=== PATIENT | female | born 1940 | race Caucasian/White ===

== ENCOUNTER → 2016-10-06 | Outpatient (CLI) | payer OTHER ==
[~2016-10-06] MED LIST: CALCIUM; DILT-115 PO; METO50TA7 PO; NAPR1TAB9 PO; PRLSR20 PO; RSTOPS OP; SIMV20TA2 PO
[2016-10-06 13:09] LABS: BLOOD UREA NITROGEN 16 mg/dl (7-18); BUN/CREATININE RATIO 19.3 (10-20); CALCIUM 9.2 mg/dl (8.5-10.1); CARBON DIOXIDE 24 mmol/L (21-32); CHLORIDE 102 mmol/L (98-107); CHOLESTEROL 187 mg/dl (0-200); CREATININE 0.85 mg/dl (0.60-1.20); GLUCOSE 95 mg/dl (70-99); POTASSIUM 4.2 mmol/L (3.5-5.1); SODIUM 138 mmol/L (136-145); TRIGLYCERIDES 58 mg/dl (0-150); VERY LOW DENSITY LIPOPROT CALC 12 mg/dl
[2016-10-06 13:12] LABS: CHOLESTEROL/HDL RATIO 2.5; HDL CHOLESTEROL 74 mg/dl
== END | disposition home or self-care (01) ==
LOC: C.LABSPEC 12:31
PROVIDERS: ATTEND Internal Medicine
DX: E78.5 Hyperlipidemia, unspecified (principal); I47.2 Ventricular tachycardia

== ENCOUNTER → 2016-11-20 | Outpatient (CLI) | payer OTHER ==
--- NOTE | 2016-11-21 06:01 | PAP/PSG TECHNICIAN REPORT ---
[facility] Physician Assistant Polysomnogram Report Study name: None Report date: 11/21/2016 Study date: 11/20/2016 Referring Physician: DR. ANDERSON Name: JANY CASTILLO Interpreting Physician: Willi Anderson M.D. Date of : 1940 Physician Assistant: Deanna Beth [facility]. Sex: Female Age: 75 Study Type: PSG PAP Weight: 154 lbs 13 in Height: 75 years, Height 5' 4" Neck Circum: BMI: 26.43 Medications: ALEVE 220 MG, CALCIUM, DILTIAZEM 240 MG, FISH OIL, OMEPRAZOLE 20 MG, PREMARIN 0.625 MG/GM, RESTASIS0.05%, TOPROL 25 MG, VIT D3 1000 UNIT, ZOCOR 20 MG Patient History 75 yr-old female here for a new CPAP treatment study. She was found to be positive for MIKALA with an AHI of 22.7. Her diagnostic study was on 08/14/16. She chose a Dreamwear nasal pillows mask size small from [employer]. The test was started on room air and 4 CMH2O. ETCO2 testing was not utilized during this study. Room 1 Parameters Monitored NPSG: E1-M2, E2-M1, Fp1-M2, Fp2-M1, F3-M2, F4-M2, F4-M1, C3-M2, C4-M2, C4-M1, O1-M2, O2-M2, O2-M1, T3-M2, T4-M1, P3-M2, P4-M1, CHIN1, CHIN2, HR, EKG, Legs, PFLOW, SNOR, FLOW, CFLOW, Tidal Volume, THOR, ABDO, SpO2, PLTH, CPRESS, ETCO2 Wave, ETCO2, pH Sleep Architecture Sleep Stages Time at Lights Off 11:18:19 PM STAGES Time (min.) TST (%) Time at Lights On 5:30:49 AM Wake 37.0 -- Total Recording Time (TRT) 372.50 min. N1 15.5 5 Total Sleep Period (TSP) 352.0 min. N2 184.5 55 Total Sleep Time (TST) 335.5min. N3 51.5 15 Awake Time 37.0 min. REM 84.0 25 Wake after Sleep Onset 17.5 min. Sleep Efficiency (SE) 90 % Sleep Onset Latency (WM) 19.5 min. Number of Stage 1 Shifts None Awakenings 13 Stage Changes 54 Number of REM periods 3 REM 84.0 25 REM Latency 139.5 min. NREM 251.5 75 Body Position Analysis Supine Right Left Side Prone Vertical Total Sleep Time (min.) 252.4 116.5 0.0 116.50 0.0 0.0 Total Sleep Time (%) 65% 35% 0% 35 0% N/A% Total Sleep Time REM (min.) 48.5 35.5 0.0 None 0.0 0.0 Total Sleep Time NREM (min.) 170.5 81.0 0.0 None 0.0 0.0 Intermittent Wake (min.) 33.4 3.6 0.0 None 0.0 0.0 Total Sleep Period (%) 66% None None None None None Arousals Myoclonus (PLM) * Events Count Index Events Count Index Spontaneous 13 2 Events Awake (PLMW) 41 66.5 Respiratory 6 1.4 Events Asleep w/ Arousal (PLMA) 7 1.3 PLM 7 1 Events Asleep w/o Arousal (PLMS) 54 9.7 Snoring 1 0 Total Asleep 61 10.9 Total 27 5 Total 102 16 Respiratory Analysis * CA OA MA CH H RERA Total Count 0 5 0 0 6 3 11 Index 0.0 0.9 0.0 0 1.1 1 2.5 Mean Duration 0.0 23.2 0.0 0.00 23.9 22.3 23.3 Longest Duration 0.0 32.5 0.0 0.00 0.0 26.3 35.0 Respiratory Event Summary Total Supine ~Supine Right Left Prone REM NREM Apneas Count 5 4 1 1 N/A N/A 0 5 Index 0.9 1 1 0.5 N/A N/A 0 1 Hypopneas (4% Desat) Count 6 6 0 0 N/A N/A 0 6 Index 1.1 1.6 0 0.0 N/A N/A 0.0 1.4 Apneas & All Hypopneas Count 11 10 1 1 N/A N/A 0 11 Index 2.0 3 1 1 N/A N/A 0.0 2.6 Respiratory Events (Art Objects Repairer+All Hyp+RERA) Count 11 13 1 1 N/A N/A 0 11 Index 2.5 4 1 0.5 N/A N/A 0.0 3.3 Respiratory Related Arousal Count 6 13 0 0 N/A N/A 0 8 Index 1.4 2 0 0 N/A N/A 0 2 Snoring Analysis Supine Right Left Prone REM NREM Total Snore duration 1.1 min Snores count 12 5 N/A N/A 2 15 17 Snore mean duration 3.9 Sec Snores index 3 3 N/A N/A 1.4 3.6 3.0 TST with snoring (%) 0.3% Desaturation Event Summary: Minimum %SpO2 Event Count Mean/Min/Max Duration(sec.) Desaturation Index % Time In Bed > 90 11 36.8 / 22.8 / 48.0 2.0 90.2 86 - 90 2 26.3 / 18.3 / 34.3 3.3 9.8 81 - 85 0 N/A 0.0 0.0 76 - 80 0 N/A 0.0 0.0 71 - 75 0 N/A 0.0 0.0 66 - 70 0 N/A 0.0 0.0 61 - 65 0 N/A 0.0 0.0 56 - 60 0 N/A 0.0 0.0 51 - 55 0 N/A 0.0 0.0 < 50 0 N/A 0.0 0.0 Total REM NREM Awake <50% 0.0 min. 0.0 min. 0.0 min. 0.0 min. 51 - 60% 0.0 min. 0.0 min. 0.0 min. 0.0 min. 61 - 70% 0.0 min. 0.0 min. 0.0 min. 0.0 min. 71 - 80% 0.0 min. 0.0 min. 0.0 min. 0.0 min. 81 - 90% 36.6 min. 0.0 min. 35.2 min. 1.5 min. 91 - 100% 335.9 min. 84.0 min. 216.3 min. 35.5 min. Average 92 93 92 93 Minimum SpO2 86 91 86 88 Desaturation Event Index 2.1 0.0 2.9 4.9 # Desat. Events below 89% 4 N/A 3 1 Time(%) with Saturation below 89% 0.7 0.0 0.6 0.1 Time(min.) with Saturation below 89% 2.7 0.0 2.2 0.5 Time (mins) REM (mins) NREM (mins) % of TST SpO2 Below 90% 9 N/A N9 1.3 SpO2 Below 88% 1 0 0 0 Heart Rate Analysis Min (bpm) Max (bpm) Average (bpm) Awake 49 74 55 NREM 49 78 53 REM 50 65 53 Overall 49 78 53 Supplemental O2 Values Minimum O2 level: None Value Start Time End Time Physician Assistant Comments Ms. Castillo slept in the right and supine positions. No cardiac arrhythmias or PLMs noted. No bruxism noted. CPAP was initiated at +4 CMH2O and up-titrated to a level of +6 CMH2O, Cflex 3 which nearly eliminated all respiratory events and snoring. A Dreamwear nasal pillows mask size small from [employer] was used during titration She did not wake to use the restroom during the night. Ms. Castillo stated that she slept fairly well. The final report will be interpreted and signed by a sleep physician. The completed physician report will then be placed in the patient medical record. Therapy Event: Therapy (cm H20) 4 5 6 Total Time at Pressure (min.) 31.6 200.2 140.7 TST at Pressure (min.) 8.1 190.7 136.7 # Periods 1 1 1 Sleep Onset (min.) 19.5 0.0 0.0 REM Onset (min.) N/A 127.4 35.2 Sleep Efficiency % 25 95 97 Wakefulness (%) 74.4 4.7 2.8 Wakefulness (min.) 23.5 9.5 4.0 NREM 1 (%) 11.4 2.5 5.0 NREM 1 (min.) 3.6 4.9 7.0 NREM 2 (%) 14.2 49.4 57.7 NREM 2 (min.) 4.5 98.8 81.2 NREM 3 (%) 0.0 25.7 0.0 NREM 3 (min.) 0.0 51.5 0.0 REM (%) 0.0 17.7 34.5 REM (min.) 0.0 35.5 48.5 # Arousals 4 11 12 Arousal Index 29.7 3.5 5.3 # Snore 1 9 7 Snore Index 7.4 2.8 3.1 AHI 37.1 1.3 0.9 AHI Supine 37.1 2.4 0.9 AHI Non-Supine N/A 0.5 N/A NREM AHI 37.1 1.5 1.4 REM AHI N/A 0.0 0.0 RDI 37.1 2.2 0.9 # Obstructive 2 2 1 # Central Ap 0 0 0 # Mixed 0 0 0 # Hypopneas 3 2 1 RERAS 0 3 0 Total Respiratory Events 5 7 2 Time Below SpO2 89.00% (min.) 0.5 1.5 0.2 Mean NREM SpO2 (%) 92 92 93 Mean REM SpO2 (%) N/A 93 93 Mean Sleep SpO2 (%) 92 92 93 Min NREM SpO2 (%) 88 86 87 Min REM SpO2 (%) N/A 91 91 Position Supine (min.) 8.1 74.2 136.7 Position Non-supine (min.) 0.0 116.5 0.0 LM Index Sleep 14.8 8.2 14.5 LM Index NREM 14.8 7.0 9.5 LM Index REM N/A 13.5 23.5 Mean Heart Rate (bpm) 54 54 52 Min Heart Rate (bpm) 52 49 49
--- NOTE | 2016-11-23 07:07 | POLYSOMNOGRAPH REPORT ---
CLINICAL DATA: A 75-year-old old female with BMI of 26.43, referred by myself for sleep apnea study. She had moderate sleep apnea on a sleep study on 08/14/2016 with an AHI of 23.7. She used a DreamWear nasal pillow mask size small from [employer]. SLEEP ARCHITECTURE: Total sleep period was 352 minutes. Total sleep time was 335.5 minutes divided between 251.5 minutes of non-REM sleep and 84 minutes of REM sleep. Sleep onset latency was 19.5 minutes. REM latency was 139.5 minutes. Sleep efficiency was 90%. Wake after sleep onset was 17.5 minutes. Sleep consisted of stage N1 5%, N2 55%, N3 15%, REM 25%. AROUSAL DATA: 27 arousals were recorded for an index of 5 per hour. PLM DATA: 61 limb movements during sleep were noted for an index of 10.9 per hour with arousal index of 1.3 per hour. RESPIRATORY DATA: AHI was 2. There were 5 obstructive apneic episodes, longest duration of apnea was 32.5 seconds. There were 6 hypopneic episodes. The mean duration of hypopnea was 24 seconds. OXIMETRY DATA: Very mild nocturnal hypoxemia was seen. Oxygen nicole was 86%. Mean saturation was 92%. Time below 88% was 1 minute. EKG: Heart rates ranged from 49-78 beats per minute. COLLAR RUNNER'S COMMENTS: The patient slept in the right and supine positions. The patient was started on CPAP and titrated up to 6 cm of water pressure, C-Flex setting #3, using DreamWear nasal pillow mask size small from [employer]. At her final pressure setting, the patient slept for 136.7 minutes with an AHI of 0.9. IMPRESSION: Moderate sleep apnea/hypopnea corrected with CPAP 6 cm of water pressure, C-Flex setting #3, DreamWear nasal pillow mask size small from [employer]. RECOMMENDATIONS: The patient should be started on the above-noted treatment regimen and seen back in followup within 90 days to document efficacy and compliance. MTDD
== END | disposition home or self-care (01) ==
LOC: C.NEUR 20:00
PROVIDERS: ATTEND Internal Medicine Pulmonary Disease
DX: G47.33 Obstructive sleep apnea (adult) (pediatric) (principal)

== ENCOUNTER → 2016-12-05 | Outpatient (CLI) | payer OTHER ==
[~2016-12-05] VITALS: Ht 165.1 cm; Wt 70.9 kg
[2016-12-05 12:53] VITALS: BP 130/78; PULSE 69; Ht 165.1 cm; Wt 70.9 kg
== END | disposition home or self-care (01) ==
LOC: C.NEUR 12:37
PROVIDERS: ATTEND Internal Medicine Pulmonary Disease
DX: G47.33 Obstructive sleep apnea (adult) (pediatric) (principal)

== ENCOUNTER → 2017-03-01 | Outpatient (CLI) | payer OTHER ==
--- NOTE | 2017-03-01 14:41 | MAMMOGRAPHY REPORT ---
BILATERAL DIGITAL SCREENING MAMMOGRAM WITH CAD: 03/01/2017 CLINICAL HISTORY: Routine screening. Patient has no complaints. TECHNIQUE: Current study was also evaluated with a Computer Aided Detection (CAD) system. Bilateral CC and MLO views were obtained. COMPARISON: Comparison is made to exams dated: 02/25/2016 mammogram, 02/16/2015 mammogram, 02/10/2014 ma mmogram, 02/04/2013 mammogram, 01/30/2012 mammogram, and 02/02/2011 ultrasound - [facility] enter. BREAST COMPOSITION: There are scattered areas of fibroglandular density in both breasts. FINDINGS: No suspicious masses, calcifications, or areas of architectural distortion are noted in ei ther breast. There has been no significant interval change compared to prior exams. IMPRESSION: ACR BI-RADS CATEGORY 1: NEGATIVE There is no mammographic evidence of malignancy. A 1 year screening mammogram is recommended. The pa tient will receive written notification of the results. Approximately 10% of breast cancers are not detected with mammography. A negative mammographic report should not delay biopsy if a clinically suggestive mass is present. Jenni Talley M.D. /:03/01/2017 12:13:31 Mortar Carrier: Lauren ZUNIGA)(Gideon), [facility] letter sent: Normal 1/2 BI-RADS Code: ACR BI-RADS Category 1: Negative
== END | disposition home or self-care (01) ==
LOC: C.MAMM 08:12
PROVIDERS: ATTEND Obstetrics & Gynecology
DX: Z12.31 Encounter for screening mammogram for malignant neoplasm of breast (principal)

== ENCOUNTER → 2017-03-06 | Outpatient (CLI) | payer OTHER ==
[~2017-03-06] VITALS: Ht 164.5 cm; Wt 70.4 kg
[2017-03-06 14:15] VITALS: BP 112/69; PULSE 71; Ht 164.5 cm; Wt 70.4 kg
== END | disposition home or self-care (01) ==
LOC: C.NEUR 12:51
PROVIDERS: ATTEND Physician Assistant Medical
DX: G47.33 Obstructive sleep apnea (adult) (pediatric) (principal); R09.81 Nasal congestion; R09.82 Postnasal drip

== ENCOUNTER → 2017-03-27 | Outpatient (CLI) | payer OTHER ==
[2017-03-27 13:22] LABS: BLOOD UREA NITROGEN 18 mg/dl (7-18); BUN/CREATININE RATIO 23.5 (10-20); CALCIUM 9.2 mg/dl (8.5-10.1); CARBON DIOXIDE 25 mmol/L (21-32); CHLORIDE 107 mmol/L (98-107); CHOLESTEROL 233 mg/dl (0-200); CREATININE 0.77 mg/dl (0.60-1.20); GLUCOSE 89 mg/dl (70-99); POTASSIUM 4.2 mmol/L (3.5-5.1); SODIUM 140 mmol/L (136-145); TRIGLYCERIDES 111 mg/dl (0-150); VERY LOW DENSITY LIPOPROT CALC 22 mg/dl
[2017-03-27 13:26] LABS: CHOLESTEROL/HDL RATIO 3.3; HDL CHOLESTEROL 70 mg/dl
== END | disposition home or self-care (01) ==
LOC: C.LABSPEC 12:17
PROVIDERS: ATTEND Internal Medicine
DX: E78.5 Hyperlipidemia, unspecified (principal); E55.9 Vitamin D deficiency, unspecified

== ENCOUNTER → 2017-09-04 | Outpatient (CLI) | payer OTHER ==
[~2017-09-04] VITALS: Ht 163.8 cm; Wt 72.3 kg
[~2017-09-04] MED LIST changes: +CEPH500C PO; +CHOL1000 PO; +LIFI5DRO OPB; +METO25TA3 PO; -METO50TA7 PO; +METO50TA8 PO
[2017-09-04 13:12] VITALS: BP 103/63; PULSE 76; Ht 163.8 cm; Wt 72.3 kg
== END | disposition home or self-care (01) ==
LOC: C.NEUR 12:10
PROVIDERS: ATTEND Internal Medicine Pulmonary Disease
DX: G47.33 Obstructive sleep apnea (adult) (pediatric) (principal); R09.81 Nasal congestion

== ENCOUNTER → 2017-10-03 | Outpatient (CLI) | payer OTHER ==
[~2017-10-03] MED LIST changes: -CEPH500C PO; -CHOL1000 PO; -LIFI5DRO OPB; -METO25TA3 PO; +METO50TA7 PO; -METO50TA8 PO
[2017-10-03 13:50] LABS: BASO % 0.9 %; BASO ABS # 0.05 K/uL (0-0.2); EOS % 5.5 %; EOS ABS # 0.32 K/uL (0-0.5); HEMATOCRIT 41.1 % (37-47); HEMOGLOBIN 14.5 g/dL (12.0-16.0); IG# 0.01 K/uL (0.00-0.02); LYMPH % 28.2 %; LYMPH ABS # 1.64 K/uL (1.2-3.4); MEAN CELL VOLUME 89.5 fL (80-100); MEAN CORPUSCULAR HEMOGLOBIN 31.6 pg (25-34); MEAN CORPUSCULAR HGB CONC 35.3 g/dl (32-36); MONO ABS # 0.58 K/uL (0.11-0.59); NEUT % 55.2 %; NEUT ABS # 3.21 K/uL (1.4-6.5); PLATELET COUNT 256 K/uL (130-400); RED CELL DISTRIBUTION WIDTH CV 13.7 % (11.5-14.5); RED CELL DISTRIBUTION WIDTH SD 45.1 fL (36.4-46.3); WHITE BLOOD COUNT 5.81 K/uL (4.8-10.8)
[2017-10-03 14:09] LABS: ALT/SGPT 23 U/L (12-78); AST/SGOT 16 U/L (15-37); BLOOD UREA NITROGEN 20 mg/dl (7-18); CALCIUM 9.4 mg/dl (8.5-10.1); CARBON DIOXIDE 27 mmol/L (21-32); CREATININE 0.83 mg/dl (0.60-1.20); GLUCOSE 94 mg/dl (70-99); POTASSIUM 4.3 mmol/L (3.5-5.1); SODIUM 136 mmol/L (136-145)
[2017-10-03 14:14] LABS: ALKALINE PHOSPHATASE 81 U/L (45-117); CHOLESTEROL 186 mg/dl (0-200); LDL CHOLESTEROL (DIRECT) 106 mg/dl; TOTAL PROTEIN 7.5 gm/dl (6.4-8.2)
== END | disposition home or self-care (01) ==
LOC: C.LABSPEC 12:15
PROVIDERS: ATTEND Internal Medicine
DX: E78.5 Hyperlipidemia, unspecified (principal); I47.2 Ventricular tachycardia; G47.30 Sleep apnea, unspecified

== ENCOUNTER 2017-10-30 02:36 | Emergency (ER) | payer OTHER ==
[~2017-10-30] VITALS: Ht 160 cm; Wt 72.6 kg
[~2017-10-30 02:36] MED LIST changes: -METO50TA7 PO; +METO50TA8 PO
[2017-10-30 02:41] VITALS: TEMP 36.4; Ht 160 cm; Wt 72.6 kg
--- NOTE | 2017-10-30 02:59 | EMERGENCY ROOM VISIT NOTE ---
History Report prepared by Lashonda: Genaro Dougherty Under the Supervision of: Dr. Kevin Guzman M.D. First contact with patient: 02:49 Chief Complaint: URINARY SYMPTOMS Stated Complaint: CAN'T PEE History of Present Illness The patient is a 76 year old female who presents to the Emergency Room with complaints of constant urinary symptoms beginning yesterday. The patient states that she had pelvic surgery for a vaginal prolapse a week ago and could not pee. She notes that she came home with a catheter in place, which was removed yesterday. She reports that she was able to pee a few times since then. The patient states that although she could pee, the stream has been weak and she did not produce a large amount of urine. She notes that she woke up tonight with abdominal pain because she could not urinate. She reports that when she urinates, it feels as though there are "spasms up inside." She denies any fever , nausea, and vomiting. Source of History: patient Onset: yesterday Position: other (bladder) Quality: other ("spasms up inside") Timing: constant Associated Symptoms: + abdominal pain, No fevers, No nausea, No vomiting Note: The patient states that she cannot urinate. Review of Systems See HPI for pertinent positives & negatives. A total of 6 systems reviewed and were otherwise negative. Past Medical & Surgical Medical Problems: (1) Chavez catheter in place (2) Vaginal prolapse Surgical Problems: (1) H/O pelvic surgery Family History FHx: cancer FHx: heart disease Social History Smoking Status: Never Smoker Alcohol Use: occasionally Marital Status: Housing Status: lives with family Occupation Status: employed Current/Historical Medications Scheduled Cephalexin Monohydrate (Keflex), 500 MG PO BID Cholecalciferol (Vitamin D3), 1 TAB PO DAILY Diltiazem Hcl Ext Rel (Tiazac), 240 MG PO DAILY Lifitegrast (Xiidra), 1 DROP OPB BID Metoprolol Succ (Toprol Xl) (Toprol-Xl), 25 MG PO DAILY Naproxen (Aleve), 440 MG PO DAILY Simvastatin (Zocor), 20 MG PO QPM Allergies Coded Allergies: Oxycodone (Unverified Allergy, Intermediate, from dr Quinn Ybarra records/ reaction not identified, 10/30/17) Physical Exam Vital Signs Date Time Temp Pulse Resp B/P (MAP) Pulse Ox O2 Delivery O2 Flow Rate FiO2 10/30/17 04:15 66 20 125/72 97 10/30/17 02:41 36.4 66 20 126/75 98 Room Air Physical Exam GENERAL: Patient is uncomfortable appearing and in no acute distress. HEENT: No acute trauma, normocephalic atraumatic, mucous membranes moist, no nasal congestion, no scleral icterus. NECK: No stridor, no adenopathy, no meningismus, trachea is midline. LUNGS: No dyspnea. Clear to auscultation and equal bilaterally. No wheeze, no rhonchi. HEART: Regular rate and rhythm. No murmurs, rubs, gallops appreciated. ABDOMEN: Soft, bowel sounds positive, no masses appreciated, no peritonitis. Moderate tenderness over suprapubic region with suprapubic mass consistent with bladder. EXTREMITIES: Normal motion all extremities, no cyanosis, no edema. NEUROLOGIC: Alert and oriented, no acute motor or sensory deficits, no focal weakness, cranial nerves grossly intact. SKIN: No rash, no jaundice, no diaphoresis. Medical Decision & Procedures Laboratory Results Test 10/30/17 03:10 Urine Color YELLOW Urine Appearance CLEAR (CLEAR) Urine pH 7.0 (4.5-7.5) Urine Specific [place] 1.009 (1.000-1.030) Urine Protein NEG (NEG) Urine Glucose (UA) NEG (NEG) Urine Ketones NEG (NEG) Urine Occult Blood NEG (NEG) Urine Nitrite NEG (NEG) Urine Bilirubin NEG (NEG) Urine Urobilinogen NEG (NEG) Urine Leukocyte Esterase NEG (NEG) Urine WBC (Auto) 0 /hpf (0-5) Urine RBC (Auto) 0-4 /hpf (0-4) Urine Hyaline Casts (Auto) 0 /lpf (0-5) Urine Epithelial Cells (Auto) 0-5 /lpf (0-5) Urine Bacteria (Auto) NEG (NEG) Laboratory results as reviewed by me. Medications Administered Medications (Trade) Dose Ordered Sig/Mili Route Start Time Stop Time Status Last Admin Dose Admin Cephalexin Monohydrate (Keflex Cap) 500 mg NOW ONCE PO 10/30/17 04:00 10/30/17 04:01 DC 10/30/17 04:08 500 MG ED Course 0250: The patient was evaluated in room B6. A complete history and physical exam was performed. 0356: Reevaluated the patient. She feels much better. She will follow up with her surgeon tomorrow. Discussed results and discharge instructions. She verbalized understanding and agreement. The patient is ready for discharge. Medical Decision 76 yr old female with acute worsening lower abdominal pain. Surgery 1 week ago of pelvic floor for vaginal prolapse and since with retention thus Chavez until yesterday and since with decreasing urinary output but increasing urge. Chavez with > 1 L UOP thus clearly in retention. UA clear. Discussion with patient regarding pro/con ABX and she wishes to be treated with abx. Will do low dose Keflex as no clear infection at this time. She will contact her surgery team later today to discuss next step but for now we will keep chavez in. She feels comfortable caring for chavez and is comfortable with plan. Medication Reconcilliation Current Medication List: was personally reviewed by me Blood Pressure Screening Patient's blood pressure: Normal blood pressure Blood pressure disposition: Did not require urgent referral Impression Primary Impression: Acute urinary retention Scribe Attestation The scribe's documentation has been prepared under my direction and personally reviewed by me in its entirety. I confirm that the note above accurately reflects all work, treatment, procedures, and medical decision making performed by me. Departure Information Dispostion Home / Self-Care Prescriptions Cephalexin Monohydrate (Keflex) 500 Mg Cap 500 MG PO BID for 7 Days, #14 CAP Prov: Kevin Guzman M.D. 10/30/17 Referrals Gary Berry M.D. (PCP) Forms HOME CARE DOCUMENTATION FORM, IMPORTANT VISIT INFORMATION Patient Instructions ED Catheter Care Radha Chavez [facility]
[2017-10-30] MEDS ORDERED: CEPH500C PO (03:57)
[2017-10-30] MEDS ORDERED: CEPHALEXIN MONOHYDRATE 250 MG CAP PO ONE (04:00)
[2017-10-30] MEDS ORDERED: METO25TA3 PO (04:01)
[2017-10-30] MEDS ORDERED: CHOL1000 PO (04:02)
[2017-10-30] MEDS ORDERED: LIFI5DRO OPB (04:02)
[2017-10-30 04:15] VITALS: BP 125/72; PULSE 66; O2SAT 97
== END 2017-10-30 04:16 | disposition home or self-care (01) ==
LOC: C.EDB 02:37
DX: R33.9 Retention of urine, unspecified (principal); Z98.890 Other specified postprocedural states; Z79.899 Other long term (current) drug therapy; Z88.5 Allergy status to narcotic agent

== ENCOUNTER → 2017-12-04 | Outpatient (CLI) | payer OTHER ==
[~2017-12-04] MED LIST changes: -CALCIUM; +CHOL1000 PO; +LIFI5DRO OPB; +METO25TA3 PO; -METO50TA8 PO; -PRLSR20 PO; -RSTOPS OP
== END | disposition home or self-care (01) ==
LOC: C.LAB1850 15:08
PROVIDERS: ATTEND Obstetrics & Gynecology
DX: N39.0 Urinary tract infection, site not specified (principal)

== ENCOUNTER → 2018-04-09 | Outpatient (CLI) | payer OTHER ==
[2018-04-09 14:32] LABS: BLOOD UREA NITROGEN 22 mg/dl (7-18); CARBON DIOXIDE 24 mmol/L (21-32); CHOLESTEROL 192 mg/dl (0-200); CREATININE 0.88 mg/dl (0.60-1.20); GLUCOSE 91 mg/dl (70-99); LDL CHOLESTEROL (DIRECT) 111 mg/dl; POTASSIUM 4.2 mmol/L (3.5-5.1); SODIUM 137 mmol/L (136-145)
== END | disposition home or self-care (01) ==
LOC: C.LABSPEC 12:54
PROVIDERS: ATTEND Internal Medicine
DX: E78.5 Hyperlipidemia, unspecified (principal); I47.1 Supraventricular tachycardia; E55.9 Vitamin D deficiency, unspecified